=== PATIENT | female | born 1960 | race Caucasian/White ===

== ENCOUNTER → 2024-03-25 16:49 | Outpatient (REF) | payer OTHER, SELFPAY | LOC: WDC 16:49 | PROVIDERS: ATTENDING PHYSICIAN Obstetrics & Gynecology; FAMILY PHYSICIAN Nurse Practitioner Adult Health | DX: Z12.31 Encounter for screening mammogram for malignant neoplasm of breast (principal) | CPT/HCPCS: 77063; 77067 ==

== ENCOUNTER → 2024-09-03 15:05 | Outpatient (REF) | payer OTHER, SELFPAY | LOC: HWEVLT 15:05 | PROVIDERS: ATTENDING PHYSICIAN Radiology Vascular & Interventional Radiology | DX: I83.893 Varicose veins of bilateral lower extremities with other complications (principal) | CPT/HCPCS: 93970 ==

== ENCOUNTER → 2025-05-21 13:18 | Outpatient (REF) | payer OTHER, SELFPAY | LOC: WDC 13:18 | PROVIDERS: ATTENDING PHYSICIAN Obstetrics & Gynecology; FAMILY PHYSICIAN Nurse Practitioner Adult Health | DX: Z12.31 Encounter for screening mammogram for malignant neoplasm of breast (principal) | CPT/HCPCS: 77063; 77067 ==